=== PATIENT | female | born 1960 ===

== ENCOUNTER 2017-03-04 08:20 | Day surgery (SDC) | payer OTHER ==
[2017-03-04] MEDS ORDERED: Sodium Chloride 0.9% 1,000 ML IV ONE (10:15)
[2017-03-04 10:16] VITALS: BMI 31.4
[2017-03-04] MEDS ORDERED: Propofol 10 mg/ml Inj (20 ML) ONE (12:36)
[2017-03-04 12:58] VITALS: TEMP 97
[2017-03-04 13:10] VITALS: BP 121/69; PULSE 71; RESP 21; O2SAT 98
== END 2017-03-04 13:09 | disposition home or self-care (01) ==
LOC: H.ENDO 08:20
PROVIDERS: ATTEND Internal Medicine Gastroenterology
DX: Z12.11 Encounter for screening for malignant neoplasm of colon (principal); D12.5 Benign neoplasm of sigmoid colon; K64.0 First degree hemorrhoids; K63.5 Polyp of colon
CPT/HCPCS: 45385; 88305; J2704; J7040

== ENCOUNTER 2017-07-31 09:16 | Emergency (ER) | payer OTHER ==
[2017-07-31 09:24] VITALS: BP 125/71; PULSE 89; TEMP 97.3; O2SAT 97; BMI 31.5
[2017-07-31 09:34] VITALS: RESP 18
--- NOTE | 2017-07-31 10:15 | CT ---
PROCEDURE: CT HEAD WITHOUT CONTRAST. HISTORY: headache COMPARISON: MRI brain dated 01/03/2017. TECHNIQUE: Axial computed tomography images were obtained through the head/brain without intravenous contrast. Radiation dose: Total exam DLP = 852 mGy-cm. This CT exam was performed using one or more of the following dose reduction techniques: Automated exposure control, adjustment of the mA and/or kV according to patient size, and/or use of iterative reconstruction technique. FINDINGS: HEMORRHAGE: No intracranial hemorrhage. BRAIN: Agenesis of the corpus callosum. No mass effect or edema. No atrophy or chronic microvascular ischemic changes. VENTRICLES: Stable dilatation of the posterior bilateral lateral ventricles. No hydrocephalus. CALVARIUM: Unremarkable. PARANASAL SINUSES: Unremarkable as visualized. No significant inflammatory changes. MASTOID AIR CELLS: Unremarkable as visualized. No inflammatory changes. OTHER FINDINGS: None. IMPRESSION: No acute intracranial pathology.
--- NOTE | 2017-07-31 10:17 | CT ---
PROCEDURE: CT Cervical Spine without contrast HISTORY: Neck pain COMPARISON: None available. TECHNIQUE: Axial computed tomography images were obtained of the cervical spine without the use of intravenous contrast. Coronal and sagittal reformatted images were created and reviewed. Radiation dose: Total exam DLP = 508.6 mGy-cm. This CT exam was performed using one or more of the following dose reduction techniques: Automated exposure control, adjustment of the mA and/or kV according to patient size, and/or use of iterative reconstruction technique. FINDINGS: VERTEBRAE: No fracture. Normal alignment. No destructive bony lesion. DISCS/SPINAL CANAL/NEURAL FORAMINA: Mild multilevel disc space narrowing. PARASPINAL SOFT TISSUES: Unremarkable. OTHER FINDINGS: Common origin of the brachiocephalic and left common carotid artery is. IMPRESSION: No acute fracture. Mild multilevel degenerative changes.
--- NOTE | 2017-07-31 10:26 | RAD ---
PROCEDURE: Radiographs of the Right Shoulder HISTORY: shoulder pain COMPARISON: No prior. FINDINGS: BONES: No acute fracture. JOINTS: Acromioclavicular joint degenerative changes. SOFT TISSUES: Normal. OTHER FINDINGS: None. IMPRESSION: No demonstrated fracture or dislocation.
--- NOTE | 2017-07-31 10:33 | RAD ---
PROCEDURE: Radiographs of the right elbow. HISTORY: pain COMPARISON: No prior. FINDINGS: BONES: No acute fracture. JOINTS: Unremarkable. SOFT TISSUES: Normal. JOINT EFFUSION: None. OTHER FINDINGS: None. IMPRESSION: No demonstrated fracture or dislocation.
--- NOTE | 2017-07-31 10:33 | RAD ---
PROCEDURE: Right Wrist Radiographs. HISTORY: pain COMPARISON: None. FINDINGS: BONES: Comminuted fracture of the distal radius with articular extension. SOFT TISSUES: Regional soft tissues are. OTHER FINDINGS: None. IMPRESSION: Comminuted fracture of the distal radius with articular extension.
[2017-07-31] MEDS ORDERED: Morphine 4 MG/ML VIAL ONE (11:34)
--- NOTE | 2017-07-31 11:50 | ED PDOC ---
HPI: Trauma/Fall - HPI Time Seen by Provider: 07/31/17 09:37 Chief Complaint (Nursing): Trauma Chief Complaint (Provider): Head inury History Per: Patient History/Exam Limitations: no limitations Onset/Duration Of Symptoms: Days (today 830am) Additional Complaint(s): Pt. slipped on ice outside today and hit the right side of her head. 4 sec LOC. No neck pain, weakness, dizziness, chest pain, abd pain, dyspnea, back pain. Has pain to the R arm from shoulder to R wrist. No numbness. Able to get up and ambulate with no issues after incident. Accidental fall. Past Medical History Reviewed: Nursing Documentation, Vital Signs Vital Signs: Last Vital Signs Temp 97.3 F L 07/31/17 09:30 Pulse 89 07/31/17 09:30 Resp 18 07/31/17 09:30 BP 125/71 07/31/17 09:30 Pulse Ox 97 07/31/17 09:30 - Medical History PMH: HTN - Surgical History Surgical History: Appendectomy, Cholecystectomy - Family History Family History: States: Unknown Family Hx - Living Arrangements Living Arrangements: With Family - Home Medications Home Medications: Ambulatory Orders Medication Instructions Recorded Ibuprofen [Motrin] 600 mg PO TID 7 Days tab 07/31/17 - Allergies Allergies/Adverse Reactions: Allergies Allergy/AdvReac Type Severity Reaction Status Date / Time No Known Allergies Allergy Verified 03/04/17 10:16 Review of Systems ROS Statement: Except As Marked, All Systems Reviewed And Found Negative Musculoskeletal: Positive for: Shoulder Pain, Arm Pain Neurological: Positive for: Headache Physical Exam - Reviewed Nursing Documentation Reviewed: Yes Vital Signs Reviewed: Yes - Physical Exam Appears: Positive for: Non-toxic, No Acute Distress Head Exam: Negative for: ATRAUMATIC (R forehead with mild swelling and tender) Skin: Positive for: Normal Color, Warm, DRY Eye Exam: Positive for: EOMI, Normal appearance, PERRL ENT: Positive for: Normal ENT Inspection, Other (no septal hematoma). Negative for: Nasal Congestion Neck: Positive for: Normal, Painless ROM Cardiovascular/Chest: Positive for: Regular Rate, Rhythm. Negative for: Edema Respiratory: Positive for: CNT, Normal Breath Sounds Pulses-Radial (R): 2+ Gastrointestinal/Abdominal: Positive for: Normal Exam, Bowel Sounds, Soft. Negative for: Tenderness Back: Positive for: Normal Inspection. Negative for: L CVA Tenderness, R CVA Tenderness Extremity: Positive for: Tenderness (R shoulder to wrist with limited ROM due to pain; R wrist deformity and tender with swelling) Neurologic/Psych: Positive for: Alert, outside event sales specialist II-XII, Oriented. Negative for: Motor/Sensory Deficits, Facial Droop - ECG O2 Sat by Pulse Oximetry: 97 Pulse Ox Interpretation: Normal - Progress ED Course And Treament: Comminuted fracture of the distal radius with articular extension. 1158: Stable. AAOx3. Spoke with Dr. Murphy who saw images. Wants sugar tong splint and fu in 2 weeks. Procedures - Splinting Location: R wrist Hand-Made Type: orthoglass Splint: sugar-tong Pre-Proc Neuro Vasc Exam: normal Post-Proc Neuro Vasc Exam: normal Disposition - Clinical Impression Clinical Impression: Wrist fracture, Head injury - Patient ED Disposition Is Patient to be Admitted: No - Disposition Referrals: Praveen Murphy MD [Medical Doctor] - 08/14/17 Disposition: Routine/Home Disposition Time: 12:15 Condition: STABLE Additional Instructions: Return if not better in 3 days. Prescriptions: Ibuprofen [Motrin] 600 mg PO TID 7 Days tab Instructions: Closed Head Injury (DC), Common Wrist Injuries (DC) Forms: [employer] (Ecuadorean) Print Language: MARTIN[place]QU[place]
== END 2017-07-31 13:48 | disposition home or self-care (01) ==
LOC: SUPCPDRO 09:16 → H.ER 09:16
DX: S52.551A Other extraarticular fracture of lower end of right radius, initial encounter for closed fracture (principal); W00.0XXA Fall on same level due to ice and snow, initial encounter; S09.90XA Unspecified injury of head, initial encounter; I10 Essential (primary) hypertension
CPT/HCPCS: 29125; 70450; 72125; 73030; 73080; 73110; 96372; 99284; J2270